=== PATIENT | male | born 1965 | race Caucasian/White ===

== ENCOUNTER 2019-05-08 22:24 | Emergency (ER) | payer MEDICAID, OTHER ==
[~2019-05-08] VITALS: Ht 185.4 cm; Wt 90.7 kg
[2019-05-08 22:37] VITALS: BP 130/74
--- NOTE | 2019-05-08 22:58 | Emergency Room Report ---
History of Present Illness General Chief Complaint: Skin Rash/Abscess Source: Patient Present Illness HPI Patient presents with lesions of his left hand. A month ago he had an injury to the palm that is slowly healing. Over the last few days he has had lesions arise on the dorsum of his left hand. He denies fevers or chills. There is mild tenderness there. There is no drainage. The hand has been swollen recently. He is not sure what happened to cause the skin to erupt this way. He states his tetanus is not up-to-date. Pain is rated 1/10 and aching without radiation. There is no numbness. He denies diabetes. He denies IV drug abuse. He has been using topical antibiotics. Right-handed Allergies: Coded Allergies: No Known Allergies (Unverified , 05/08/19) Patient History Past Medical History: see triage record Social History: Reports: smoking; Denies: drug use Social History Narrative Sales Reviewed Nursing Documentation: PMH: Agreed; PSxH: Agreed Nursing Documentation-PMH Past Medical History: No Stated History Review of Systems Constitutional: Reports: see HPI Musculoskeletal: Reports: see HPI Skin: Reports: see HPI Neurological: Reports: see HPI Physical Exam Vital Signs Date Time Temp Pulse Resp B/P (MAP) Pulse Ox O2 Delivery O2 Flow Rate FiO2 05/08/19 22:32 97.9 49 18 130/74 (92) 97 Room Air Sp02 EP Interpretation: reviewed, normal General Appearance: well appearing, no apparent distress, GCS 15 Head: normocephalic Eyes: bilateral eye normal inspection, bilateral eye PERRL ENT: moist mucus membranes Respiratory: normal inspection Cardiovascular #1: regular rate, rhythm Gastrointestinal: normal inspection Musculoskeletal: gait/station normal, tenderness - And swelling dorsum of left hand Neurologic: alert, distal neuro normal, oriented x3 Skin: other - 2 lesions in the left hand: 1 is 2 cm and circumferential with surrounding erythema without drainage or fluctuance, the second is on the thumb and this is less than a centimeter and similar in appearance. Medical Decision Making Diagnostic Impression: Primary Impression: Cellulitis of left hand ER Course Patient presents with 3 lesions on his left hand. One is resolving on the palm. The other 2 have a differential of cellulitis, joe, bug bite reaction amongst others. Antibiotics are indicated. Discussed the need for elevation of the hand. Tetanus indicated Discussed the importance of close outpatient follow as this is his hand. Patient understands treatment plan. Patient stable for outpatient observation and treatment. Last Vital Signs Date Time Temp Pulse Resp B/P (MAP) Pulse Ox O2 Delivery O2 Flow Rate FiO2 05/08/19 23:11 97.9 78 18 130/74 97 Room Air Status: improved Disposition: HOME, SELF-CARE Condition: Improved Scripts Ibuprofen* (MOTRIN*) 600 Mg Tablet 600 MG ORAL Q6H PRN for For Pain, #20 TAB Prov: Prince Hussein MD 05/08/19 Cephalexin* (KEFLEX*) 500 Mg Capsule 500 MG ORAL EVERY 6 HOURS, #28 CAP Prov: Prince Hussein MD 05/08/19 Trimethoprim/Sulfamethoxazole 160/800* (BACTRIM DS TABLET*) 1 Each Tablet 1 TAB ORAL Q12H, #14 TAB 0 Refills Prov: Prince Hussein MD 05/08/19 Prince Hussein MD May 08, 2019 22:58
[2019-05-08] MEDS ORDERED: Bactrim-DS 1 tab ORAL ONE (23:00)
[2019-05-08] MEDS ORDERED: Tetanus/Diptheria/Pertussis IM ONE (23:00)
[2019-05-08] MEDS ORDERED: Cephalexin 500mg cap ORAL ONE (23:00)
[2019-05-08] MEDS ORDERED: BACTRIM DS TAB1 EAC1 ORAL (23:01)
[2019-05-08] MEDS ORDERED: CEPHALEXIN500 MG ORAL (23:01)
[2019-05-08] MEDS ORDERED: IBUPROFEN600 MG ORAL (23:01)
[2019-05-08 23:11] VITALS: BP 130/74
== END 2019-05-08 23:11 | disposition home or self-care (01) ==
LOC: EMR 22:51
DX: L03.114 Cellulitis of left upper limb (principal); F17.200 Nicotine dependence, unspecified, uncomplicated
CPT/HCPCS: 90471; 90715; Z7502; 99282